=== PATIENT | female | born 1960 | race Caucasian/White ===

== ENCOUNTER 2019-01-18 13:17 | Inpatient (IN) | payer OTHER ==
[~2019-01-18] VITALS: Ht 172.7 cm; Wt 66.7 kg
[2019-01-18 14:00] VITALS: BP 100/67
[2019-01-18] MEDS ORDERED: ONDANSETRON PF 4 MG/2 ML VIAL. IVP PRN (15:15)
[2019-01-18] MEDS: fentaNYL PF VIAL 100 MCG/2 ML VIAL IVP PRN ×2 (17:31→21:38)
[2019-01-18 19:20] VITALS: BP 119/81
[2019-01-18] MEDS ORDERED: ACETAMINOPHEN 325 MG TABLET. PO PRN (19:30)
[2019-01-18] MEDS ORDERED: DOCUSATE 100 MG/10 ML SOLUTION. PO PRN (19:30)
[2019-01-18] MEDS ORDERED: ONDANSETRON ODT 4 MG TAB.RAPDIS. PO PRN (19:30)
[2019-01-18] MEDS: HYDROcodone/APAP 5/325MG 1 TAB TABLET PO PRN ×2 (20:07→21:38)
[2019-01-18] MEDS: diphenhydrAMINE HCL 25 MG CAPSULE PO PRN (22:58)
[2019-01-18 23:00] VITALS: BP 106/68
[2019-01-19 03:00] VITALS: BP 104/71
[2019-01-19 04:55] LABS: BASO % 0 % (0-3); EOS # 0.2 x10^3/uL (0.0-0.7); EOS % 3 % (0-3); HEMATOCRIT 38.8 % (36.0-47.0); HEMOGLOBIN 13.3 g/dL (12.0-15.5); LYMPH # 1.2 x10^3/uL (1.0-4.8); LYMPH % 19 % (24-48); MEAN CORPUSCULAR HEMOGLOBIN 34 pg (25-35); MEAN CORPUSCULAR HGB CONC 34 g/dL (31-37); MEAN CORPUSCULAR VOLUME 100 fL (79-100); MONO # 0.5 x10^3/uL (0.0-1.1); MONO % 7 % (0-9); NEUT # 4.4 x10^3/uL (1.8-7.7); NEUT % 71 % (31-73); PLATELET COUNT 249 x10^3/uL (140-400); RED CELL DISTRIBUTION WIDTH 12.9 % (11.5-14.5); WHITE BLOOD COUNT 6.2 x10^3/uL (4.0-11.0)
[2019-01-19 05:48] LABS: ALBUMIN 2.8 g/dL (3.4-5.0); ALBUMIN/GLOBULIN RATIO 0.8 (1.0-1.7); CALCIUM 8.1 mg/dL (8.5-10.1); CREATININE 0.6 mg/dL (0.6-1.0); POTASSIUM 3.5 mmol/L (3.5-5.1); TOTAL BILIRUBIN 0.3 mg/dL (0.2-1.0); TOTAL PROTEIN 6.5 g/dL (6.4-8.2)
[2019-01-19] MEDS: HYDROcodone/APAP 5/325MG 1 TAB TABLET PO PRN ×3 (07:58→21:07)
[2019-01-19 08:42] VITALS: BP 104/77
[2019-01-19] MEDS ORDERED: LORazepam 1 MG TABLET PO PRN ×2 (10:15)
[2019-01-19] MEDS ORDERED: HALOPERIDOL LACTATE 5 MG/ML VIAL. IVP PRN (10:15)
[2019-01-19] MEDS ORDERED: chlordiazePOXIDE HCL 25 MG CAPSULE PO PRN (10:15)
[2019-01-19 11:09] LABS: CA 125 13.4 U/mL (0.0-38.1)
--- NOTE | 2019-01-19 11:29 | HP ---
ADMIT DATE: 01/18/2019 HISTORY OF PRESENT ILLNESS: The patient is a 58-year-old female patient who presented to the Emergency Room of [facility] complaining of pain in her right lower quadrant that has been going on for the last 3 days, it became worse on the day of arrival to the Emergency Room, worse with bumps in the car ride. The patient has taken no medication for her pain. Did complain of decreased appetite. No nausea, no vomiting, no diarrhea. She describes her pain as severe in intensity. No radiation of the discomfort. No migration to pain. There are no associated dysuria, frequency or hematuria. She was evaluated in the Emergency Room, has had lab work, which showed her white cell count to be slightly elevated at 11,000. Her chemistry was essentially unremarkable and has had a CT scan of the abdomen and pelvis, which basically showed that the patient has large complex mass measuring 27.4 x 23.7 x 12.7 cm in craniocaudal transverse and anteroposterior dimension respectively, which appears to arise from the pelvis, probably from the left ovary and would be consistent with such cystadenoma, cystadenocarcinoma. No evidence of renal calculus or obstructive uropathy. She does have linear atelectasis at the lung bases diverticula in the sigmoid colon, but no evidence of diverticulitis and therefore, the patient was transferred to [facility] to consult the acid treater with the aim for definitive surgical intervention. The patient has had no knowledge of any such mass before. PAST MEDICAL HISTORY: Significant for bronchial asthma/chronic obstructive pulmonary disease. She also has nicotine use disorder and alcohol use disorder. PAST SURGICAL HISTORY: Unremarkable. ALLERGIES: She has no known drug allergies. MEDICATIONS: She is on albuterol sulfate 2 puffs every 6 hours as needed. FAMILY HISTORY: She has 2 sisters, one older and one younger, both healthy. She does not know her biological father. Her mother is still alive at age of 80 and has traumatic brain injury and coronary artery bypass graft surgery. SOCIAL HISTORY: She is , has 1 son. She continued to smoke half a pack a day and drinks 3-4 beers a day. She does not use any drugs. 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 She retired from [employer] REVIEW OF SYSTEMS: The patient denied any blurring of vision, cataract, glaucoma or macular degeneration. Denied any earache, tinnitus or sensorineural deafness. Denied any nosebleeds, stuffy nose or postnasal drip. Denied any sore throat, sore tongue, toothache, hoarseness of voice or difficulty swallowing. She denied any nausea or vomiting. Denied any diarrhea or constipation. Denied any hematemesis, melena or hematochezia. She denied any dysuria, frequency or hematuria. Denied any chest pain, shortness of breath, orthopnea, paroxysmal nocturnal dyspnea. Denied any cough, phlegm or hemoptysis. Denied any chills, rigors or fever. The patient should be stated that she has actually gained weight, instead of losing weight. PHYSICAL EXAMINATION: GENERAL: When I examined her this morning, she looked well and was clearly in no apparent respiratory distress. No pallor, jaundice, cyanosis or thyromegaly. No jugular venous distention. No lower limb edema. VITAL SIGNS: Her heart rate was 71, blood pressure was 104/77, temperature was 97.9, respiratory rate was 18 and oxygen saturation was 95%. HEAD, EYES, EARS, NOSE AND THROAT: Showed normocephalic, atraumatic. NECK: Supple. HEART: Showed normal first and second heart sounds. No gallop or murmur. CHEST: Clear to auscultation. No crepitation or rhonchi. ABDOMEN: Distended, soft, nontender. No guarding or rigidity. No organomegaly. All hernial orifice intact. Bowel sounds normal. NEUROLOGIC: She is awake, alert, responding appropriately. All cranial nerves intact. EXTREMITIES: She moves extremities without difficulty. She ambulates without assistance or assistive devices. LABORATORY DATA: Her lab work showed a white cell count 6000, hemoglobin 13, hematocrit 39, MCV 100, and platelet count 249,000. Serum sodium was 139, potassium 3.5, chloride 104, bicarbonate 26, anion gap of 9, BUN 3, creatinine 0.6, estimated GFR was 103 mL per minute. Her glucose 138, calcium was 8.1. Total bilirubin, AST, ALT, alkaline phosphatase were normal. Total protein was 6.5, albumin was 2.8. CT scan of the abdomen and pelvis without contrast showed that she has large complex mass measuring 27.4 x 23.7 x 12.7 cm in craniocaudal transverse and anteroposterior dimension respectively, which appears to arise from the pelvis, probably from the left ovary and would be consistent with a cystadenoma or cystadenocarcinoma. There was no evidence of any renal calculi or obstructive uropathy. She does have linear atelectasis at the lung bases diverticula in the sigmoid colon, but no diverticulitis. ASSESSMENT AND PLAN: In summary, this is a 58-year-old female patient who presented with right lower quadrant pain and a CT scan revealed a large complex mass arising probably from the left ovary. Other medical problems include bronchial asthma. She also has nicotine and alcohol dependence. My plan is to start her on Nicoderm patch. Start her on SCDs for DVT prophylaxis and alcohol withdrawal protocol. We have already consulted the acid treater and apparently he ordered some tumor markers including CA-125 and CEA. ANGY PARRY MD DR: OTONIEL/north JOB#: [id number] / [id number]
[2019-01-19] MEDS: NICOTINE 14MG PATCH. TD SCH (11:32)
[2019-01-19] MEDS: FOLIC ACID 1 MG TABLET. PO SCH (11:33)
[2019-01-19] MEDS: MULTIVITAMIN with MINERAL TABLET. PO SCH (11:33)
[2019-01-19 14:00] VITALS: BP 100/74
[2019-01-19] MEDS: DOCUSATE SODIUM 100 MG CAPSULE. PO PRN ×2 (14:44→21:06)
[2019-01-19 18:20] VITALS: BP 98/69
[2019-01-19] MEDS: diphenhydrAMINE HCL 25 MG CAPSULE PO PRN (21:07)
[2019-01-19 21:10] VITALS: BP 107/72
--- NOTE | 2019-01-19 22:56 | CONS ---
DATE OF CONSULTATION: 01/19/2019 REASON FOR CONSULT: Pelvic mass. HISTORY OF PRESENT ILLNESS: This is a 58-year-old 1, para 1, that presented to [facility] in [place] and transferred to the care of [facility] for abdominal pain and abdominal discomfort with the increase in rapidly girth and abdominal circumference. The patient has had a decrease in appetite. No nausea or vomiting. No constipation or obstipation. No changes in bowel. No changes in frequency of urination. The patient obviously had a large abdominal mass. CT scan showed the mass to be 27 x 23 x 12.0 cm. It looks like it is arising from the right adnexa. The chart was reviewed in detail. CA-125 was normal. There is no family history of breast cancer or cervical cancer. PHYSICAL EXAMINATION: Dr. Moore and my exam showed abdominal mass extending well above the umbilicus. Tense abdomen. Normal bowel sounds. Mass does not seem to be painful secondary to the CA-[address] scan unremarkable other than the mass that a tissue diagnosis would be the next step secondary to the patient's age, would rather than do a simple oophorectomy. RECOMMENDATIONS: I recommend that we do a total abdominal hysterectomy and bilateral salpingo-oophorectomy at this time. She understood and agreed, and will plan on total abdominal hysterectomy, bilateral salpingo-oophorectomy. The patient was given reasons why not just doing the simple ovarian removal. The patient also was informed if there was evidence of cancer, she may need further therapy, i.e., chemotherapy, lymph node biopsies. If there was something that was unexpected, that was not seen on the CT scan that there could be a possibility of terminating the surgery. At the point of the beginning, we are just removing the ovary and the cyst and leaving everything else and turning the case over to AIR ROUTE CONTROLLER oncologist at a different facility. The patient understood and agreed. The plan will be to have a total abdominal hysterectomy with bilateral salpingo-oophorectomy with the tissue diagnosis of the large ovarian mass is the most important. The patient understood and agreed. SHARYN VEGAS MD DR: JANICE/north JOB#: [id number] / [id number]
[2019-01-20] VITALS (11 sets, daily range): BP systolic 106–138; BP diastolic 62–88
[2019-01-20] MEDS ORDERED: IV RINGERS,LACTATED 1000ML 1,000 ML IV SCH (07:22)
[2019-01-20] MEDS ORDERED: fentaNYL PF VIAL 100 MCG/2 ML VIAL IV PRN (07:30)
[2019-01-20] MEDS ORDERED: LIDOCAINE 1% PF 2 ML VIAL. ID PRN (07:30)
[2019-01-20] MEDS ORDERED: MORPHINE SULFATE 2 MG/ML VIAL. IV PRN ×2 (07:30→15:45)
[2019-01-20] MEDS ORDERED: HYDROmorphone 2 MG/ML VIAL IV PRN (07:30)
[2019-01-20] MEDS: FOLIC ACID 1 MG TABLET. PO SCH (08:43)
[2019-01-20] MEDS: NICOTINE 14MG PATCH. TD SCH (08:43)
[2019-01-20] MEDS: MULTIVITAMIN with MINERAL TABLET. PO SCH (08:43)
[2019-01-20] MEDS: HYDROcodone/APAP 5/325MG 1 TAB TABLET PO PRN (08:43)
[2019-01-20] MEDS ORDERED: LIDOCAINE 2% PF 5 ML VIAL. ONE (13:17)
[2019-01-20] MEDS ORDERED: PROPOFOL 20 ML IV ONE (13:17)
[2019-01-20] MEDS ORDERED: ONDANSETRON PF 4 MG/2 ML VIAL. ONE (13:18)
[2019-01-20] MEDS ORDERED: ROCURONIUM 50 MG/5 ML VIAL. ONE ×2 (13:18→15:14)
[2019-01-20] MEDS ORDERED: DEXAMETHASONE SOD PHOS 20 MG/5 ML VIAL. ONE (13:18)
[2019-01-20] MEDS ORDERED: fentaNYL PF VIAL 250 MCG/5 ML VIAL ONE (14:00)
--- NOTE | 2019-01-20 14:32 | PN ---
DATE: 01/20/2019 SUBJECTIVE: The patient is resting slightly propped up in bed, in no apparent distress, awake, alert. On questioning her, she denied any other complaints. She was seen by Dr. Dsouza and apparently, she is scheduled for total abdominal hysterectomy and bilateral salpingo-oophorectomy. With the caveat that she might need further procedure if unexpected things were found and she is agreeable to that. PHYSICAL EXAMINATION: GENERAL: When I examined her this morning, she looked well and was clearly in no apparent respiratory distress. No pallor, jaundice, cyanosis or thyromegaly. No jugular venous distention. No lower limb edema. VITAL SIGNS: Her heart rate was 88, blood pressure was 123/77, temperature was 98.1, respiratory rate was 16 and oxygen saturation was 95%. The rest of the clinical exam was stable. LABORATORY DATA: Her lab work is normal. Her CA-125 is 13.4 and her hemoglobin, hematocrit, white cell count and platelets are within normal limits. ASSESSMENT AND PLAN: Large complex mass arising probably from the left ovary, for which she is scheduled for total abdominal hysterectomy and bilateral salpingo-oophorectomy. Other medical problems include bronchial asthma. She has also nicotine and alcohol dependence. We offered her the nicotine patch as well as was started on alcohol withdrawal protocol together with SCDs for DVT prophylaxis. ANGY PARRY MD DR: OTONIEL/north JOB#: [id number] / [id number]
[2019-01-20] MEDS ORDERED: NEOSTIGMINE METHYLSULFATE 5 MG/5 ML SYRINGE. ONE (14:45)
[2019-01-20] MEDS ORDERED: PHENYLEPHRINE in 0.9% NACL PF 1 MG/10 ML SYRINGE. IV ONE (14:45)
[2019-01-20] MEDS ORDERED: GLYCOPYRROLATE 1 MG/5 ML VIAL. ONE (14:56)
[2019-01-20 15:11] LABS: CEA 3.7 ng/mL (0.0-4.7)
[2019-01-20] MEDS ORDERED: ePHEDrine PF IN SALINE 50 MG/10 ML SYRINGE. IV ONE (15:13)
[2019-01-20] MEDS ORDERED: SEVOFLURANE 61 TO 120 MINUTES. IH ONE (15:19)
[2019-01-20] MEDS ORDERED: KETOROLAC 30 MG/ML VIAL. ONE (15:25)
[2019-01-20] MEDS: IV 1/2 NORMAL SALINE 1,000 ML IV SCH (15:43)
[2019-01-20] MEDS: IV NORMAL SALINE 1000ML BAG 1,000 ML IV SCH (15:43)
[2019-01-20] MEDS ORDERED: DEXTROSE 50% 25 GM / 50ML DISP.SYRIN. IV PRN (15:45)
[2019-01-20] MEDS ORDERED: ZOLPIDEM 5 MG TABLET. PO PRN (15:45)
[2019-01-20] MEDS ORDERED: diphenhydrAMINE HCL 25 MG CAPSULE PO PRN (15:45)
[2019-01-20] MEDS ORDERED: oxyCODONE/APAP 5/325 1 TAB TABLET PO PRN ×3 (15:45)
[2019-01-20] MEDS ORDERED: METOCLOPRAMIDE HCL 10 MG/2 ML VIAL. IV PRN (15:45)
[2019-01-20] MEDS ORDERED: NALOXONE 0.4 MG/ML VIAL. IV PRN (15:45)
[2019-01-20] MEDS ORDERED: 0.9 % SODIUM CHLORIDE 10 ML DISP.SYRIN. IV PRN (15:45)
[2019-01-20] MEDS ORDERED: ONDANSETRON PF 4 MG/2 ML VIAL. IV PRN (15:45)
--- NOTE | 2019-01-20 15:58 | PDOC ---
BRIEF OPERATIVE NOTE Date: Jan 20, 2019 Pre-Op Diagnosis Ovarian cyst Post-Op Diagnosis Same Procedure Performed VERITO BSO Surgeon Lianna Shoemaker Anesthesia Type: General Blood Loss 200cc Specimens Obtained UTO Peritoneal fluid Complications None SHARYN VEGAS MD Jan 20, 2019 15:58
[2019-01-20] MEDS ORDERED: HYDROmorphone 12mg/30ml PCA 30 ML IV PRN (16:00)
[2019-01-20] MEDS: PROCHLORPERAZINE 10 MG/2 ML VIAL. IV PRN ×2 (16:05→16:34)
[2019-01-20] MEDS: fentaNYL PF VIAL 100 MCG/2 ML VIAL IV PRN ×2 (16:05→16:14)
[2019-01-20] MEDS ORDERED: PROCHLORPERAZINE 10 MG/2 ML VIAL. ONE (16:05)
[2019-01-20] MEDS ORDERED: fentaNYL PF VIAL 100 MCG/2 ML VIAL ONE (16:05)
--- NOTE | 2019-01-20 17:15 | NUR ---
pt returned from surgery with a full bag of fluids so no need for this bag at this time
--- NOTE | 2019-01-20 19:20 | OP ---
DATE OF SURGERY: 01/20/2019 PREOPERATIVE DIAGNOSIS: Ovarian cyst. POSTOPERATIVE DIAGNOSIS: Left ovarian cyst. PROCEDURE: Total abdominal hysterectomy, bilateral salpingo-oophorectomy. SURGEON: Fred Dsouza M.D. DIRECTOR OF CATEGORY MANAGEMENT: Taqueria Shoemaker M.D. INTRAOPERATIVE CONSULT: Dr. Beck. SPECIMENS: Uterus, tubes, ovaries, peritoneal fluid. ESTIMATED BLOOD LOSS: 200 mL. FINDINGS: Normal uterus, right adnexa, left ovary is measured about 27-28 cm in length, is at least 10 cm above the umbilicus. It was fluid filled with a second fluid filled sac with ascariasis and nodularity inside the first sac with nodularity felt inside the second sac. The outside of the ovary appeared normal. There were diverticula noted on the sigmoid colon and descending colon, was pointed out by Dr. Beck. The liver edge was smooth. There was no lymphadenopathy that was grossly palpated along the aorta bifurcation and no other nodularity within the mesentery that could be appreciated. SPECIMENS: Uterus, bilateral oviducts and large ovarian cyst from the left and right ovary. DESCRIPTION OF PROCEDURE: Risks, benefits, indication, alternatives discussed in detail with the patient. The patient was brought to OR theater, placed in the supine position. After adequate general anesthesia, the patient prepped and draped in usual sterile manner. A midline incision was carried out. This incision needed to be carried out approximately 10 cm above the umbilicus to the liver, a large left ovarian cyst. On delivery of the cyst, it ruptured copious amount of fluids, greater than 1000 mL of what appeared to be hemorrhagic brown fluid, was released from the ovary upon its rupture and rolled out on to the floor and into the pelvic cavity. The ruptured cyst was promptly clamped with available clamp to create no further spillage and also suctioned out the ovary. The ovary that has already been brought out of the incision. The IPL its attachments to the uterus was identified, clamped across with Endo-ROSA and handed off the operative field. The above findings were noted. Dr. Beck looked at the suspicious lesions on the intestines and felt they were diverticula/tics. Dr. Shoemaker also arrived to help me with the remaining surgery. The remaining of the left adnexa was liberating on the left, Cornu was taken down and the clamp, cut, tie fashion through the cardinal ligaments. The right side was taken down the infundibulopelvic ligament. The tube in its mesosalpinx and the round ligament and then the broad ligament down to the cardinal ligament was clamped cut, tie fashion. The bladder flap had been created and displaced caudad. A straight Lanie clamps were used to clamp the remaining uterosacral ligaments down to the level of the distal cervix. Curved Heaneys were used to clamp across the proximal part of the vagina. The uterus was transected free of this attachment with Annamaria scissors and handed off the operative field. Vaginal cuff was reapproximated with 0 Vicryl in a Lanie stitch manner. The middle aspect of the vaginal cuff was reapproximated with 2-0 Vicryl in [id number]-hytjn stitch. Good hemostasis was assured. Ureters were inspected, noted to be peristalsing, way below the operative field. The procedure was terminated. Pelvis irrigated copiously with warm normal saline. Good hemostasis was assured. The previous O'Aubrey-O'Sheth retractor that was placed in the pelvis was removed. The sponges were removed and accounted for. Intestines allowed to fall back into the pelvic cavity. The rectus fascia was reapproximated with 0 PDS in a double looped in a running manner in the usual fashion. Subcutaneous tissue was irrigated copiously with warm normal saline. Skin was reapproximated with susan. Sponge, needle and instrument counts were correct x 2 per nursing staff. FRED DSOUZA MD DR: JANICE/north JOB#: [id number] / [id number]
[2019-01-20] MEDS: ceFAZolin SODIUM IV Push 1 GM VIAL. IVP SCH (21:48)
[2019-01-21] MEDS: IV 1/2 NORMAL SALINE 1,000 ML IV SCH ×3 (01:14→20:42)
[2019-01-21 02:42] VITALS: BP 116/74
[2019-01-21] MEDS: ceFAZolin SODIUM IV Push 1 GM VIAL. IVP SCH ×2 (02:46→10:30)
[2019-01-21 04:00] VITALS: BP 104/68
[2019-01-21 04:42] LABS: BASO % 0 % (0-3); EOS % 0 % (0-3); HEMATOCRIT 37.6 % (36.0-47.0); HEMOGLOBIN 12.7 g/dL (12.0-15.5); LYMPH # 0.5 x10^3/uL (1.0-4.8); LYMPH % 7 % (24-48); MEAN CORPUSCULAR HEMOGLOBIN 33 pg (25-35); MEAN CORPUSCULAR HGB CONC 34 g/dL (31-37); MEAN CORPUSCULAR VOLUME 99 fL (79-100); MONO # 0.3 x10^3/uL (0.0-1.1); MONO % 5 % (0-9); NEUT # 5.8 x10^3/uL (1.8-7.7); NEUT % 87 % (31-73); PLATELET COUNT 200 x10^3/uL (140-400); RED CELL DISTRIBUTION WIDTH 12.6 % (11.5-14.5); WHITE BLOOD COUNT 6.7 x10^3/uL (4.0-11.0)
[2019-01-21 05:13] LABS: ALBUMIN 2.4 g/dL (3.4-5.0); ALBUMIN/GLOBULIN RATIO 0.7 (1.0-1.7); CALCIUM 7.9 mg/dL (8.5-10.1); CREATININE 0.8 mg/dL (0.6-1.0); GFR 73.9; POTASSIUM 3.9 mmol/L (3.5-5.1); TOTAL BILIRUBIN 0.2 mg/dL (0.2-1.0); TOTAL PROTEIN 5.8 g/dL (6.4-8.2)
[2019-01-21] MEDS: MULTIVITAMIN with MINERAL TABLET. PO SCH (07:53)
[2019-01-21] MEDS: DOCUSATE SODIUM 100 MG CAPSULE. PO PRN (07:53)
[2019-01-21] MEDS: FOLIC ACID 1 MG TABLET. PO SCH (07:53)
[2019-01-21] MEDS: HYDROcodone/APAP 5/325MG 1 TAB TABLET PO PRN ×3 (07:53→16:47)
[2019-01-21] MEDS: MAG HYDROX/ALUMINUM HYD/SIMETH 30 ML ORAL.SUSP PO PRN ×2 (07:53→12:38)
[2019-01-21 08:07] LABS: % BANDS 14 % (0-9); % LYMPHS 7 % (24-48); % MONOS 6 % (0-10); % SEGS 73 % (35-66); PLT ESTIMATE ADEQUATE (ADEQUATE); TOXIC GRANULATION MOD
[2019-01-21] MEDS: NICOTINE 14MG PATCH. TD SCH ×2 (09:00→10:30)
--- NOTE | 2019-01-21 09:21 | PN ---
DATE: SUBJECTIVE: The patient is resting, slightly propped up in bed, no apparent distress, awake, alert. On questioning her, she stated that her pain is much improved than before, has been up and about, has allowed to eat and drink. She underwent total abdominal hysterectomy and bilateral salpingo-oophorectomy successfully. Her uterus, bilateral ovary duct and large ovarian cyst from the left and right ovary was submitted today to pathology. PHYSICAL EXAMINATION: GENERAL: When I saw her this morning, she looked well and was clearly in no apparent respiratory distress, slightly pale, no jaundice, cyanosis, or thyromegaly. No jugular venous distension. No limb edema. VITAL SIGNS: Her heart rate was 110, blood pressure was 104/68, temperature was 99.6, respiratory rate was 18 and oxygen saturation was 96% on room air. The rest of clinical exam is stable. Her abdomen is slightly tender. Her intake over the last 24 hours was 300, no output was recorded. LABORATORY DATA: As of this morning, her white cell count was 6700, hemoglobin 12.7, hematocrit 37.6, MCV 99 and platelet count 200,000 with a manual differential showed 87% polymorphs, 7% monocytes. Her chemistry showed a serum sodium of 141, potassium 3.9, chloride 105, bicarbonate 28, anion gap of 8, BUN 4, creatinine was 0.8, estimated GFR was 74 mL per minute, glucose 125, calcium was 7.9. Total bilirubin, AST, ALT, alkaline phosphatase were normal. Total protein was 5.8, albumin was 2.4. ASSESSMENT: 1. In summary, this is a 58-year-old female patient who was admitted with right lower quadrant pain, was found to have large complex mass arising probably from the left ovary for which she underwent total abdominal hysterectomy and bilateral salpingo-oophorectomy successfully. 2. Other medical problems include: A. Bronchial asthma. B. Nicotine addiction. C. Alcohol dependence. PLAN: To continue with pain management. Continue with DVT prophylaxis. Discontinue the alcohol withdrawal protocol. ANGY PARRY MD DR: OTONIEL/north JOB#: [id number] / [id number]
--- NOTE | 2019-01-21 10:29 | NUR ---
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 Pump cleared with the total number that was shown from on machine. Addendum: 01/21/19 at 1033 by KAR BERMAN RN Amended: Links added.
[2019-01-21] MEDS ORDERED: SIMETHICONE 80 MG TAB.CHEW PO PRN (13:00)
[2019-01-21 13:20] VITALS: BP 125/82
[2019-01-21] MEDS: IV NORMAL SALINE 1000ML BAG 1,000 ML IV SCH (15:43)
[2019-01-21] MEDS: ONDANSETRON PF 4 MG/2 ML VIAL. IV PRN (16:47)
[2019-01-21 17:15] VITALS: BP 118/80
[2019-01-21 20:00] VITALS: BP 113/80
[2019-01-22] MEDS: ONDANSETRON PF 4 MG/2 ML VIAL. IV PRN (00:30)
[2019-01-22] MEDS: MAG HYDROX/ALUMINUM HYD/SIMETH 30 ML ORAL.SUSP PO PRN (01:38)
[2019-01-22 01:48] VITALS: BP 101/80
[2019-01-22] MEDS: HYDROcodone/APAP 5/325MG 1 TAB TABLET PO PRN (06:00)
[2019-01-22] MEDS: IV 1/2 NORMAL SALINE 1,000 ML IV SCH ×2 (07:43→15:38)
[2019-01-22] MEDS: FOLIC ACID 1 MG TABLET. PO SCH (08:27)
[2019-01-22] MEDS: NICOTINE 14MG PATCH. TD SCH (08:27)
[2019-01-22] MEDS: MULTIVITAMIN with MINERAL TABLET. PO SCH (08:27)
[2019-01-22 08:30] VITALS: BP 110/74
[2019-01-22 11:57] VITALS: BP 116/80
--- NOTE | 2019-01-22 14:07 | PATHOLOGY ---
Note [facility] Accession Number: [id number] TESTS RESULT FLAG UNITS REF RANGE LAB Clinician Provided Cytology Information No. of containers..01 Other (Miscellaneous) Source: PERITONEAL FLUID DIAGNOSIS: 02 PERITONEAL FLUID NEGATIVE FOR MALIGNANT EPITHELIAL CELLS. THIS INTERPRETATION INCLUDES EVALUATION OF A CELL BLOCK. SCANT CELLULARITY. PAUCICELLULAR SPECIMEN WITH PREDONIMANTLY BLOOD, PERPIHERAL BLOOD ELEMENTS AND RARE SMALL LYMPHOCYTES. PLEASE SEE ALSO THE CORRESPONDING SURGICAL SPECIMEN ([id number]). CLINICAL CORRELATION IS RECOMMENDED. Pathologist ICD10: 02 D39.12 Signed out by: Alka Norris MD, Pathologist NPI- [id number] Performed by: Dona Wood Traffic Control Signaler ([facility]) Gross description: 01 5 ML, RED, BLOODY /LCS 03/18/1840 0000 Local FLAG LEGEND: L-Low Normal,H-High Normal,LL-Alert Low,HH-Alert High <-Panic Low,>-Panic High,A-Abnormal,AA-Critical Abnormal Performed at: [address] [facility] [address] [place] [address] Adal Caldwell MD, 02 [facility] [place] [address] [place] [address] Shayan Tello MD, Specimen Comment: A courtesy copy of this report has been sent to [phone] Specimen Comment: Report sent to Specimen Comment: A duplicate report has been generated due to demographic updates. Performed at: [address], [place], [place] [id number] MD Adal Caldwell MD Phone: [phone]
[2019-01-22 14:39] VITALS: BP 106/76
[2019-01-22] MEDS: IV NORMAL SALINE 1000ML BAG 1,000 ML IV SCH (15:38)
[2019-01-22] MEDS ORDERED: OXYC1TAB15 PO (15:50)
[2019-01-22] MEDS ORDERED: NAPR-514 PO (15:50)
--- NOTE | 2019-01-22 15:51 | PDOC ---
Provider Note Provider Note 01/21/19 Late entry Doing well VSS Dressing CDI FU in AM SHARYN VEGAS MD Jan 22, 2019 15:51
[2019-01-22 16:25] VITALS: BP 109/75
--- NOTE | 2019-01-22 19:16 | DS ---
DATE OF DISCHARGE: 01/22/2019 ADMISSION DIAGNOSIS: Pelvic mass/ovarian cyst. DISCHARGE DIAGNOSES: Pelvic mass/ovarian cyst, status post total abdominal hysterectomy, bilateral salpingo-oophorectomy. HOSPITAL COURSE: Unremarkable. Postoperatively, the patient did well. Postop H and H was 12.7 and 37.6, down from 13.3 and 38.8. The patient's Sauceda was discontinued. On postop day #1, the patient ambulated without assistance, was voiding without any difficulty. On postop day #2, the patient continued to improve. Dressing was clean, dry and intact. Vital signs stable. The patient was discharged home in stable condition and routine discharge instructions were given. The patient was discharged home on Percocet and naproxen. The patient is to follow up with me in 1 week. SHARYN VEGAS MD DR: JANICE/north JOB#: [id number] / [id number]
--- NOTE | 2019-01-22 23:37 | PN ---
DATE: 01/22/2019 SUBJECTIVE: The patient is sitting on the edge of the bed comfortably in no apparent distress. On questioning her, denied any complaint. She did have an episode of vomiting last night, but denied any further episodes of nausea, vomiting this morning. Denied any abdominal pain. OBJECTIVE: GENERAL: On examining her, she looked pale, no jaundice, cyanosis or thyromegaly. No jugular venous distension. No limb edema. VITAL SIGNS: Her heart rate this morning was 96, blood pressure was 111/80, temperature was 98.9, respiratory rate was 16 and oxygen saturation was 98% on room air. The rest of clinical exam is stable. ABDOMEN: Soft, nontender. LABORATORY DATA: No lab work done this morning. However, all her lab works were within normal range. ASSESSMENT: 1. This is a 58-year-old female patient who underwent total abdominal hysterectomy and bilateral salpingo-oophorectomy successfully. 2. Other medical problems include: A. Bronchial asthma. B. Nicotine addiction. C. Alcohol dependence. From a medical point of view, she seems to be stable. The creative strategist will decide whether she can be discharged or not. ANGY PARRY MD DR: OTONIEL/north JOB#: [id number] / [id number]
--- NOTE | 2019-01-24 22:06 | PATHOLOGY ---
[facility] Accession Number: [id number] . 01 Material submitted: . PART A: ovary - LEFT OVARY. Modifiers: left PART B: uterus - UTERUS,CERVIX,RIGHT TUBE AND OVARY. Modifiers: right . 01 Clinical history: . ovarian mass . 02 Frozen section diagnosis: . GROSS INTRAOPERATIVE DIAGNOSIS (Alka Norris MD) . "Left ovary": - Large cystic ovary with solid areas showing necrosis, grossly consistent with at least a borderline tumor. (CLW:feature writer; 01/24/2019) . INTRAOPERATIVE GROSS DESCRIPTION Received fresh from the OR, labeled "Linda Bob, and left ovary fresh for frozen" is a large partially collapsed cystic ovary and attached fallopian tube. The fresh specimen weighs 636 grams and measures 18 x 15 x 5 cm. The cyst contains thick mucinous fluid. The specimen is serially sectioned to reveal a multiloculated cystic ovary with large solid areas showing focal areas of necrosis. The case is discussed with Dr. Dsouza. The specimen is fixed in formalin. (CLW:feature writer; 01/24/2019) . Intraoperative consultation performed at [facility], [address] [place] [address], [place] [id number]. WEP/MBR . 02 Diagnosis: A. "Left ovary" salpingo-oophorectomy: - OVARY, LEFT, WITH MUCINOUS BORDERLINE TUMOR. (SEE COMMENT). - Fallopian tube, left, with minimal histologic alterations. . B. "Uterus, cervix, right tube and ovary", hysterectomy and right salpingo-oophorectomy: - Cervix with mild chronic cervicitis. - Endometrium with cystic atrophic pattern. - Myometrium with intramural leiomyoma and adenomyoma, each measuring 0.8 cm grossly. - Fallopian tube, right, with minimal histologic alterations. - Ovary, right, with small cortical cyst and extensive corpora albicantia. . (CLW:feature writer; 01/24/2019) . . Surgical Pathology Cancer Case Summary Procedure ___ Total hysterectomy and bilateral salpingo-oophorectomy . Specimen Integrity Specimen Integrity of Left Ovary ___ Capsule ruptured . Tumor Site ___ Left ovary . Tumor Surface Involvement ___ Absent . Fallopian Tube Surface Involvement ___ Absent . Tumor Size Greatest dimension (centimeters): 18 cm + Additional dimensions (centimeters): 15 x 5 cm . 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 Other Tissue/ Organ Involvement ___ Not applicable . Peritoneal/Ascitic Fluid ___ Negative for malignancy (normal/benign) . Regional Lymph Nodes ___ No lymph nodes submitted or found . Pathologic Stage Classification (pTNM, AJCC 8th Edition) Primary Tumor (pT) ___ pT1: Tumor limited to ovaries (one or both) or fallopian tube(s) . Regional Lymph Nodes (pN) ___ pNX:Regional lymph nodes cannot be assessed MBR 01/24/2019 1335 Local . 02 Comment: Part A is co-reviewed with Dr. Danielle Garcia. Please see also the cytology specimen/pelvic washings ([id number]). The case is discussed with Dr. Dsouza on 01/24/19 at approximately 10:30 a.m. (CLW:jero; 01/24/2019) . 02 Electronically signed: . Alka Norris MD, Pathologist NPI- [id number] . 01 Gross description: . A. PLEASE SEE FROZEN SECTION FOR INTRAOPERATIVE GROSS DESCRIPTION. . A. The specimen is received in formalin, labeled "Linda Bob, left ovary" and consists of a previously opened 636 g partially encapsulated and multi loculated ovarian mass measuring 18.0 x 15.0 x 5.0 cm. The external surface is pink-fox with no tumor on the surface. Attached is a fimbriated fallopian tube measuring 7.3 cm in length and 0.5 cm in diameter. Present within one of the locules is a multinodular/multicystic, mucoid, white-kingsley friable mass measuring 11.2 x 8.3 x 7.2 cm. The external surface is inked black. Sectioning through the mass reveals necrotic and extensively mucoid cut surfaces. The mass grossly appears contained within the ovary/cyst. The cyst linings show necrosis and hemorrhage and no additional masses. . Sectioning the fallopian tube reveals a well-defined lumen and no gross lesions. Tool Liaison sections are submitted as follows: . A1-A3: Entire fallopian tube A4-A11: Ovarian mass A12-A14: Ovarian mass wall . After initial microscopic examination, additional telemarketing representative sections of the solid areas are submitted as [id number]. . B. The specimen is received in formalin, labeled "Paulino Linda, uterus, cervix, right tube and ovary" and consists of a 45 g uterus with attached cervix measuring 6.8 x 3.8 x 2.6 cm. Attached is a partial nonfimbriated right fallopian tube segment measuring 2.0 cm in length and 0.4 cm in diameter. Also attached is the left tubo-ovarian complex (12 g) consisting of a fimbriated fallopian tube measuring 6.5 cm in length and 0.5 cm in diameter which is attached to a 3.2 x 2.0 x 1.1 cm ovary. The uterine serosa is kingsley, smooth, and shiny. The slitlike 0.7 cm cervical os is surrounded by glistening pink-kingsley ectocervical mucosa. It is bivalved revealing a corrugated endocervical canal measuring 2.4 cm in length. The endometrial cavity is triangular measuring 2.8 cm in length and 2.2 cm in width which is lined by a pink-red endometrium measuring 0.1 cm. The myometrium is pink-kingsley measuring up to 1.5 cm with 2 intramural nodules measuring 0.8 cm. There is one nodule in both the anterior and posterior myometrium. No additional masses or lesions are identified. . Both the nonfimbriated right fallopian tube segment and fimbriated left fallopian tube show well-defined central lumens. The left ovary is white-kingsley and smooth to cerebriform. Sectioning reveals grossly unremarkable cut surfaces with multiple corpora albicantia. Tool Liaison sections are submitted as follows: . B1: Anterior cervix B2: Posterior cervix B3: Anterior endomyometrium to include nodule B4: Posterior endomyometrium to include nodule B5: Right fallopian tube, entire B6-B8: Left fallopian tube, entire B9-B11: Entire left ovary (SDY; 01/21/2019) SYU/SYU 01/24/2019 2128 Local . 02 Pathologist provided ICD-10: N72, N85.8, D25.1, D26.1, N83.201, D49.59 . 02 CPT . 821837, [id number], [id number] Specimen Comment: A courtesy copy of this report has been sent to [phone], [phone] Specimen Comment: [id number] Specimen Comment: Report sent to / DR PARRY Specimen Comment: A duplicate report has been generated due to demographic updates. Performed at: 01 [facility] [address] [facility] [address], [place] [id number] MD Adal Caldwell MD Phone: [phone] Performed at: 02 [facility] [address] [place], [place] [id number] MD Shayan Tello MD Phone: [phone]
== END 2019-01-22 17:05 | disposition home or self-care (01) | DRG 742 ==
LOC: 3 NORTH 14:44
PROVIDERS: ADMIT Internal Medicine; ATTEND Internal Medicine
PROC: 0UT20ZZ Resection of Bilateral Ovaries, Open Approach (ICD-10-PCS; 2019-01-20)
PROC: 0UT70ZZ Resection of Bilateral Fallopian Tubes, Open Approach (ICD-10-PCS; 2019-01-20)
PROC: 0UT90ZZ Resection of Uterus, Open Approach (ICD-10-PCS; principal; 2019-01-20 13:30)
DX: N83.202 Unspecified ovarian cyst, left side (principal); E43 Unspecified severe protein-calorie malnutrition; J98.11 Atelectasis; K57.30 Diverticulosis of large intestine without perforation or abscess without bleeding; F10.20 Alcohol dependence, uncomplicated; F17.210 Nicotine dependence, cigarettes, uncomplicated; J44.9 Chronic obstructive pulmonary disease, unspecified; N83.201 Unspecified ovarian cyst, right side; Z79.899 Other long term (current) drug therapy
CPT/HCPCS: 36415; 80053; 82378; 85007; 85025; 86304; 88112; 88305; 88307; A7015; C1769; J0171; J0690; J0696; J0780; J1100; J1885; J2001; J2370; J2405; J2704; J2710; J2765; J3010; J3490; J7120; Q0163; A4461; G0378